=== PATIENT | male | born 1965 | race Caucasian/White ===

== ENCOUNTER 2020-10-08 11:47 | Day surgery (SDC) | payer OTHER ==
[~2020-10-08] VITALS: Ht 175.3 cm; Wt 93.6 kg
[~2020-10-08 11:47] MED LIST: ALBU90OI6 INH; AMOCLA500 PO; ASPI81CH PO; BENZ100A PO; Bactrim Ds Tab1 EACH PO; CYCL10 PO; DULO30 PO; HYDACE5325 PO; HYDPAM50 PO; IBUP600 PO; KETO10 PO; Keflex500 MG PO; LORA1 PO; LOSA50 PO; NAPR220 PO; NAPR550 PO; Norco 5-325 Ta1 EACH; Norco 5-325 Ta1 EACH PO; OXYACE5T PO; PRED5 PO; Prinivil10 MG PO; RXOXYACE PO; TRAM50 PO; UNKNOWN ABX
--- NOTE | 2020-10-08 12:50 | NUR ---
10/08/20 1250 LIBERTAD OZUNA PT UPDATED THAT THERE MAY BE DELAY IN START TIME DUE TO PRECEDING CASE GOING LONGER THAN EXPECTED. PT HAS CALL LIGHT WITHIN REACH, DR. ESCOBAR TO SEE PT. PT DENIES NEEDS AND REPORTS IS COMFORTABLE AT THIS TIME.
--- NOTE | 2020-10-08 14:08 | NUR ---
10/08/20 1408 Juani Campos BUPIVACAINE 0.5 50ML MIXED WITH EPI 0.15ML TO CONSTITUE BUP 0.5% W/EPI 1:200,000
--- NOTE | 2020-10-08 14:56 | NUR ---
10/08/20 1456 Halie Hall PT INTO RECLINER WITHOUT DIFFICULTY. PT TALKATIVE, VERY ALERT. PT DENIES DISCOMFORT AT THIS TIME HOWEVER WISHES TO TAKE 1 PO PAIN MED PRIOR TO DC. WILL GO OVER DC INSTRUCTIONS SHORTLY. PT TOLERATING PO INTAKE WELL.
== END 2020-10-08 15:17 | disposition home or self-care (01) ==
LOC: ORSCSDS 11:47
PROVIDERS: Surgery
PROC: 0DBQ7ZZ Excision of Anus, Via Natural or Artificial Opening (ICD-10-PCS; principal; 2020-10-08 13:00)
PROC: 0DJD8ZZ Inspection of Lower Intestinal Tract, Via Natural or Artificial Opening Endoscopic (ICD-10-PCS; principal; 2020-10-08 13:00)
DX: K60.3 Anal fistula (principal); I10 Essential (primary) hypertension; Z87.891 Personal history of nicotine dependence; Z79.899 Other long term (current) drug therapy
CPT/HCPCS: A9270; J0171; J1100; J1885; J2250; J2370; J2405; J2704; J3010; J7120

== ENCOUNTER 2021-07-13 05:57 | Day surgery (SDC) | payer MEDICARE, OTHER ==
[~2021-07-13] VITALS: Ht 175.3 cm; Wt 94.5 kg
[~2021-07-13 05:57] MED LIST changes: +HYDHCL25 PO; +HYDR1TAB94 PO
--- NOTE | 2021-07-13 06:57 | NUR ---
History, Chart, Medications and Allergies reviewed before start of procedure. Patient confirms NPO status and agrees with scheduled surgery. Lungs clear T/O to Auscultation. Patient States Post-Procedure ride home has been arranged with his friend, Alyson.
--- NOTE | 2021-07-13 06:58 | NUR ---
REPORT GIVEN TO DENISE SHRESTHA RN.
--- NOTE | 2021-07-13 09:45 | NUR ---
Patient up to Ambulate independently. Gait steady. Discharge instructions reviewed with patient. Patient verbalizes understanding. Copy given to patient to take home.Lungs clear T/O to Auscultation. Patient States Post-Procedure ride home has been arranged. Discharged via wheelchair to private car for ride home.
--- NOTE | 2021-07-14 15:15 | NUR ---
07/14/21 1515 Diane Singleton VERIFICATIONS: EDIT CHART.
== END 2021-07-13 09:52 | disposition home or self-care (01) ==
LOC: ORSCMMR 05:57 → ORD 09:00 → ORSCMMR 09:52
PROVIDERS: Surgery
PROC: 0WUF0JZ Supplement Abdominal Wall with Synthetic Substitute, Open Approach (ICD-10-PCS; principal; 2021-07-13 09:00)
DX: K42.9 Umbilical hernia without obstruction or gangrene (principal); I10 Essential (primary) hypertension; I48.0 Paroxysmal atrial fibrillation; Z87.891 Personal history of nicotine dependence
CPT/HCPCS: A9270; C1781; J0171; J0690; J1100; J1885; J2250; J2405; J2704; J2710; J3010; J7120

== ENCOUNTER 2024-12-26 19:28 | Emergency (ER) | payer MEDICARE, OTHER ==
[~2024-12-26] VITALS: Ht 175.3 cm; Wt 95.2 kg
[2024-12-26] MEDS ORDERED: IBUP600 PO (21:40)
[2024-12-26 21:55] VITALS: BP 128/85
== END 2024-12-26 21:58 | disposition home or self-care (01) ==
LOC: ER 19:28
DX: M25.561 Pain in right knee (principal); Z79.899 Other long term (current) drug therapy; Z87.891 Personal history of nicotine dependence
CPT/HCPCS: 73562-RT; 93971; 99284-25